=== PATIENT | female | born 1930 | race Caucasian/White ===

== ENCOUNTER 2019-12-14 15:51 | Inpatient (IN) | payer MEDICARE, OTHER ==
--- NOTE | 2019-12-14 15:56 | HP ---
SUPERVISING PHYSICIAN: Mainor Amin M.D. CHIEF COMPLAINT: Shortness of breath. HISTORY OF PRESENT ILLNESS: This is an 89 year-old female patient who has a history of congestive heart failure, chronic obstructive pulmonary disease and asthma that has been feeling poorly for the last 2 to 3 days. She progressively worsened to the point where she went to the Emergency Room in [place] due to her shortness of breath. She also had coughing and weakness. Initial oxygen saturations were in the low 70s. When they put oxygen on her it did come up to the mid 80s. She was given several breathing treatments and it then came up to the low 90s on 3 liters nasal cannula. Her other vital signs were basically within normal limits. BNP was only in the 50s and she does have a history of congestive heart failure, and then she tested positive for COVID-19. [facility] does not have the facilities for COVID patients so she was transferred here in stable condition. PAST MEDICAL HISTORY: 1. Congestive heart failure of unknown etiology. 2. Chronic obstructive pulmonary disease. 3. Asthma. 4. Essential tremors. PAST SURGICAL HISTORY: 1. section times 2. 2. Facial cancer removed. OUTPATIENT MEDICATIONS: 1. Pulmicort. 2. Omeprazole. 3. Amlodipine. 4. Aspirin. 5. Brinzolamide-Brimonidine ophthalmic drops. 6. Lisinopril. 7. Metoprolol. 8. Saline nasal spray. ALLERGIES: ACETAMINOPHEN. SOCIAL HISTORY: She previously lived in [place] and is a patient of Dr. Mohan, but recently moved in with her daughter in [place]. She smoked in the past but quit many years ago. There is no history of ETOH or illicit drug use. REVIEW OF SYSTEMS: GENERAL: Positive for fatigue and fever. Negative for weight changes. HEENT: Negative for sinus symptoms, ear pain, vision changes or sore throat. RESPIRATORY: Positive for wheezing, coughing or shortness of breath. CARDIAC: Negative for chest pain, palpitations or tachycardia. GASTROINTESTINAL: Negative for nausea, vomiting, diarrhea, constipation. GENITOURINARY: Negative for hematuria, dysuria or polyuria. SKIN: Negative for lesions or rashes. NEUROLOGIC: Positive for weakness. Negative for headache or seizures. PHYSICAL EXAMINATION: VITAL SIGNS: Temperature 98.7, heart rate 103, blood pressure 135/79, respiratory rate 23 to 26, O2 saturation 89% on 3 liters nasal cannula. GENERAL: This is an 89 year-old female patient who is sitting up in her hospital bed. She is in moderate respiratory distress. HEENT: Normocephalic, atraumatic. Pupils are equal and reactive. Oropharynx is clear. NECK: Supple without mass. RESPIRATORY: Expiratory wheezing throughout with some scattered rhonchi, diminished at the bases. She is visibly tachypneic. She can only speak in 1 to 2 words at a time without getting visibly short of breath. CHEST: There is equal rise and fall of the chest with inspiration and expiration. CARDIOVASCULAR: Regular rate and rhythm. GASTROINTESTINAL: Abdomen is soft, nondistended, nontender. Bowel sounds are positive. EXTREMITIES: No cyanosis, clubbing or edema. NEUROLOGIC: Awake, alert and oriented times three. Cranial nerves II-XII are grossly intact as tested. SKIN: [place], warm and dry. LABORATORY: WBCs are 7,500 with hemoglobin 11.4, hematocrit 34.1. PTT is 21.9 with fibrinogen of 491, D-dimer is 939. Electrolytes are basically within normal limits with the exception of her potassium is low at 3.5. AST is 52, LD is 234, C reactive protein 2.3, ferritin is pending. Troponin is pending. RADIOLOGY: Chest CT shows imaging features can be seen with COVID-19 pneumonia though are nonspecific and can occur with a variety of infectious or noninfectious processes. All other labs and films have been reviewed via the EMR and her chart from [facility]. ASSESSMENT: 1. COVID pneumonia. 2. Chronic obstructive pulmonary disease and asthma with exacerbation complicated by #1. 3. Congestive heart failure, unknown etiology. 4. Essential tremors. PLAN: The patient has been admitted to the hospital. We will initiate the pneumonia guidelines as well as the COVID guidelines. She will be on azithromycin and Rocephin as well as Lovenox for DVT prophylaxis, Decadron and Remdesivir. She will also have Protonix for ulcer prophylaxis. I will restart her home medications as soon as they are verified. Will also do the routine labs for tomorrow. She will also be on aggressive pulmonary hygiene. She is normally on Pulmicort but I have started Symbicort as she cannot have nebulizers in her room due to COVID. Will continue to monitor closely and follow as needed. [facility][id number] [facility]
[2019-12-14] MEDS ORDERED: SODIUM CHLORIDE 0.9% (FLUSH) 10 ML SYG IV PRN (16:01)
[2019-12-14] MEDS ORDERED: ACETAMINOPHEN 325 MG TAB PO PRN (16:01)
[2019-12-14] MEDS ORDERED: ONDANSETRON INJ 4 MG/2 ML VIAL IV PRN (16:01)
[2019-12-14] MEDS ORDERED: REMDESIVIR 200 MG in SODIUM CHLORIDE 0.9% 250ML 250 ML IVPB ONE (16:07)
[2019-12-14] MEDS ORDERED: DEXAMETHASONE INJ 10 MG/ML VIAL IV SCH (16:30)
[2019-12-14] MEDS ORDERED: KCL IVS ONE ×2 (17:03→19:30)
[2019-12-14] MEDS ORDERED: [UNRECOGNIZED DRUG - OTHER] IVS ONE ×2 (17:03→19:30)
[2019-12-14] MEDS ORDERED: cefTRIAXone SODIUM 1 GM in SODIUM CHL 0.9% 50ML MIN-BAG+ 50 ML IVPB SCH ×2 (17:30→21:00)
[2019-12-14] MEDS ORDERED: AZITHROMYCIN IV 500 MG in SODIUM CHLORIDE 0.9% 250ML 250 ML IVPB SCH (18:00)
[2019-12-14] MEDS ORDERED: SODIUM CHLORIDE 0.9% 250ML 250 ML ONE ×2 (18:13→20:16)
--- NOTE | 2019-12-14 18:14 | CT ---
CT CHEST WITHOUT IV CONTRAST HISTORY: Covid positive. COMPARISON: None. TECHNIQUE: CT scan of the chest was performed without IV contrast. This exam was performed according to our departmental dose-optimization program, which includes automated exposure control, adjustment of the mA and/or kV according to patient size and/or use of iterative reconstruction technique. FINDINGS: The thyroid gland is normal. No mediastinal or hilar adenopathy. The heart size is normal without pericardial effusion. The thoracic aorta is normal caliber. No consolidation, pleural effusion, or pneumothorax is identified. There are scattered groundglass opacities in the bilateral upper lobes. The aorta is normal in caliber. No acute bony findings are seen. No abnormal body wall hernia. IMPRESSION: Imaging features can be seen with COVID-19 pneumonia, though are nonspecific and can occur with a variety of infectious and noninfectious processes. [PneInd] Reference: https://pubs.rsna.org/doi/full/10.1148/ryct.[email or web address] Electronically signed by: Florian Delcid MD 12/14/2019 6:13 PM CDT
[2019-12-14] MEDS ORDERED: SODIUM CHLORIDE 0.65% NASAL SPRAY 45 ML BTTL BNAS PRN (18:21)
[2019-12-14] MEDS: IV SET AND CAP CHANGE INJ INJ SCH (18:33)
[2019-12-14] MEDS ORDERED: AZITHROMYCIN IV 500 MG VIAL IVPB ONE (20:15)
[2019-12-14] MEDS ORDERED: cefTRIAXone SODIUM 1 GM VIAL ONE (20:15)
[2019-12-14] MEDS ORDERED: SODIUM CHL 0.9% 50ML MIN-BAG+ 50 ML IVPB ONE (20:16)
[2019-12-14] MEDS: BIFIDOBACTERIUM INFANTIS 4 MG CAP PO SCH (20:30)
[2019-12-14] MEDS: AZITHROMYCIN IV 500 MG in SODIUM CHLORIDE 0.9% 250ML 250 ML IVPB SCH (20:30)
[2019-12-14] MEDS: DEXAMETHASONE INJ 10 MG/ML VIAL IV SCH (20:30)
[2019-12-14] MEDS: ENOXAPARIN SODIUM 40 MG/0.4 ML SYG SUBCU SCH (20:31)
[2019-12-14] MEDS: guaiFENesin ER TAB 600 MG TAB PO SCH (20:31)
[2019-12-14] MEDS: SODIUM CHLORIDE 0.9% (FLUSH) 10 ML SYG IV SCH (20:32)
[2019-12-14] MEDS: BRIMONIDINE OPHTH SCH (20:35)
[2019-12-14] MEDS: [UNRECOGNIZED DRUG - OTHER] OPHTH SCH (20:35)
[2019-12-14] MEDS: BRINZOLAMIDE OPHTH SCH (20:35)
[2019-12-14] MEDS: ALBUTEROL INHALER 64 PUFF/8GM INH SCH ×2 (20:45→21:53)
[2019-12-15] MEDS: BUDESONIDE/FORMOTEROL 160/4.5 60 PUFF/6 GM INH INH SCH ×3 (05:18→20:30)
[2019-12-15] MEDS: PANTOPRAZOLE SODIUM IV 40 MG VIAL IV SCH (05:35)
--- NOTE | 2019-12-15 07:29 | RAD ---
EXAM: XR Chest, 1 View CLINICAL HISTORY: covid TECHNIQUE: Frontal view of the chest. COMPARISON: Limited comparison to CT 12/14/2019 FINDINGS: Lungs: There is chronic appearing interstitial scarring with superimposed asymmetric multifocal right groundglass lung disease. Pleural space: No pneumothorax or pleural effusion. Heart: Normal cardiac size and configuration. Mediastinum: No abnormality noted. Bones/joints: No osseous destruction or sclerosis noted. IMPRESSION: There are abnormalities consistent with but not specific for covid pneumonia. Electronically signed by: Rajani Garsia MD 12/15/2019 7:27 AM CDT
[2019-12-15] MEDS: ALBUTEROL INHALER 64 PUFF/8GM INH SCH ×4 (08:50→20:30)
[2019-12-15] MEDS: guaiFENesin ER TAB 600 MG TAB PO SCH ×2 (09:07→20:51)
[2019-12-15] MEDS: REMDESIVIR 100 MG in SODIUM CHLORIDE 0.9% 250ML 250 ML IVPB SCH (09:07)
[2019-12-15] MEDS: BIFIDOBACTERIUM INFANTIS 4 MG CAP PO SCH ×2 (09:07→20:51)
[2019-12-15] MEDS: LISINOPRIL 5 MG TAB PO SCH (09:08)
[2019-12-15] MEDS: ASPIRIN (ENTERIC COATED) 81 MG TAB PO SCH (09:08)
[2019-12-15] MEDS: METOPROLOL SUCCINATE XL 25 MG TAB PO SCH (09:08)
[2019-12-15] MEDS: amLODIPine BESYLATE 5 MG TAB PO SCH (09:08)
[2019-12-15] MEDS: DEXAMETHASONE INJ 10 MG/ML VIAL IV SCH ×2 (09:08→09:35)
[2019-12-15] MEDS: BRINZOLAMIDE OPHTH SCH ×2 (09:09→21:35)
[2019-12-15] MEDS: SODIUM CHLORIDE 0.9% (FLUSH) 10 ML SYG IV SCH ×2 (09:09→20:52)
[2019-12-15] MEDS: BRIMONIDINE OPHTH SCH ×2 (09:09→21:35)
[2019-12-15] MEDS: [UNRECOGNIZED DRUG - OTHER] OPHTH SCH ×2 (09:09→21:35)
--- NOTE | 2019-12-15 16:00 | PN ---
SUPERVISING PHYSICIAN: Mainor Amin MD DATE: 12/15/19 SUBJECTIVE: The patient says she is doing okay, said she still had a little bit of shortness of breath but she is talking in full sentences. No nausea, vomiting, diarrhea. OBJECTIVE: VITAL SIGNS: Temperature 98, pulse 106, blood pressure 150/76, respirations 22, oxygen saturation 95% on 3.5 liter nasal cannula. GENERAL: Patient is resting comfortably, does not look to be in any distress. CHEST: Lung sounds, I do not notice any wheezing or rhonchi today. They are diminished toward the bases. HEART: Regular rate and rhythm. ABDOMEN: Soft, non-tender, positive bowel sound. EXTREMITIES: Without edema. NEUROLOGIC: She is alert and oriented x3. LABORATORY: White count 3,900, hemoglobin 10.8, hematocrit 32.7, platelet count 304,000, differential shows just a slight left shift. Today, chemistries show normal electrolytes with BUN of 14, creatinine 1.0. Liver functions all within normal limits including AST. C-reactive protein is down to 2.2. RADIOLOGY: Chest x-ray today shows abnormalities consistent with but nonspecific Covid pneumonia, multifocal. ASSESSMENT: 1. COVID pneumonia. 2. Chronic obstructive pulmonary disease and asthma with exacerbation complicated by #1. 3. Congestive heart failure, unknown etiology. 4. Essential tremors. PLAN: Will continue current plan at this point with azithromycin and Rocephin, Lovenox, Decadron and Remdesivir. She is on Protonix for ulcer protection. Will follow her labs closely and anticipate probably another 24 to 48 hours until we can discharge her home. Until then, we will continue to monitor and treat as needed. #[id number] MTDD
[2019-12-15] MEDS: cefTRIAXone SODIUM 1 GM in SODIUM CHL 0.9% 50ML MIN-BAG+ 50 ML IVPB SCH (18:59)
[2019-12-15] MEDS ORDERED: CARVEDILOL 3.125 MG TAB ONE (19:12)
[2019-12-15] MEDS ORDERED: busPIRone HCL 5 MG TAB ONE (19:12)
[2019-12-15] MEDS ORDERED: GABAPENTIN 300 MG CAP ONE (19:13)
[2019-12-15] MEDS ORDERED: SODIUM CHLORIDE 0.9% (FLUSH) 10 ML SYG ONE (19:15)
[2019-12-15] MEDS ORDERED: ENOXAPARIN SODIUM 40 MG/0.4 ML SYG SUBCU ONE (19:15)
[2019-12-15] MEDS ORDERED: guaiFENesin ER TAB 600 MG TAB ONE (19:15)
[2019-12-15] MEDS: AZITHROMYCIN IV 500 MG in SODIUM CHLORIDE 0.9% 250ML 250 ML IVPB SCH (19:30)
[2019-12-15] MEDS: ENOXAPARIN SODIUM 40 MG/0.4 ML SYG SUBCU SCH (20:51)
[2019-12-16] MEDS: PANTOPRAZOLE SODIUM IV 40 MG VIAL IV SCH (06:05)
[2019-12-16] MEDS: BUDESONIDE/FORMOTEROL 160/4.5 60 PUFF/6 GM INH INH SCH ×2 (08:30→21:08)
[2019-12-16] MEDS: ALBUTEROL INHALER 64 PUFF/8GM INH SCH ×4 (08:30→21:08)
[2019-12-16] MEDS: guaiFENesin ER TAB 600 MG TAB PO SCH ×2 (08:48→20:43)
[2019-12-16] MEDS: METOPROLOL SUCCINATE XL 25 MG TAB PO SCH (08:48)
[2019-12-16] MEDS: ASPIRIN (ENTERIC COATED) 81 MG TAB PO SCH (08:48)
[2019-12-16] MEDS: LISINOPRIL 5 MG TAB PO SCH (08:49)
[2019-12-16] MEDS: BIFIDOBACTERIUM INFANTIS 4 MG CAP PO SCH ×2 (08:49→20:43)
[2019-12-16] MEDS: amLODIPine BESYLATE 5 MG TAB PO SCH (08:49)
[2019-12-16] MEDS: DEXAMETHASONE INJ 10 MG/ML VIAL IV SCH (08:49)
[2019-12-16] MEDS: SODIUM CHLORIDE 0.9% (FLUSH) 10 ML SYG IV SCH ×2 (08:50→20:43)
[2019-12-16] MEDS: BRINZOLAMIDE OPHTH SCH ×2 (08:50→20:47)
[2019-12-16] MEDS: REMDESIVIR 100 MG in SODIUM CHLORIDE 0.9% 250ML 250 ML IVPB SCH (08:50)
[2019-12-16] MEDS: BRIMONIDINE OPHTH SCH ×2 (08:50→20:47)
[2019-12-16] MEDS: [UNRECOGNIZED DRUG - OTHER] OPHTH SCH ×2 (08:50→20:47)
[2019-12-16] MEDS: cefTRIAXone SODIUM 1 GM in SODIUM CHL 0.9% 50ML MIN-BAG+ 50 ML IVPB SCH (19:17)
[2019-12-16] MEDS: AZITHROMYCIN IV 500 MG in SODIUM CHLORIDE 0.9% 250ML 250 ML IVPB SCH (19:52)
[2019-12-16] MEDS: ENOXAPARIN SODIUM 40 MG/0.4 ML SYG SUBCU SCH (20:43)
--- NOTE | 2019-12-16 21:06 | PN ---
SUPERVISING PHYSICIAN: Mainor Amin M.D. DATE: 12/16/19 SUBJECTIVE: The patient still is short of breath. Seems to be a little bit more short today than yesterday. She is not in any distress. Able to talk in full sentences without any complications. She has not had any nausea or vomiting. No diarrhea. OBJECTIVE: VITAL SIGNS: Temperature 98.2, pulse 91, blood pressure 112/66, respirations 20 to 24, satting 94% on 2 liters nasal cannula. GENERAL: The patient is resting comfortably. Does not look to be in any distress. CHEST: Lung sounds are a little diminished today. I do note some upper airway wheezing, not any rhonchi are noted. HEART: Regular rate and rhythm. ABDOMEN: Soft, non-tender. Positive bowel sounds. EXTREMITIES: Without any edema. NEUROLOGIC: She is alert and oriented times three. LABORATORY: White count is up to 9,900 with a left shift noted. Hemoglobin 10.2, hematocrit 30.0. D-dimer is down to 655, fibrinogen is now normalized at 343. Troponin is less than 0.02. C reactive protein now has normalized. Electrolytes are within normal limits. Magnesium 2.1. Liver functions are all within normal limits. MICROBIOLOGY: Sputum culture is pending. Urine culture is showing no growth. RADIOLOGY: No additional radiographic studies today. ASSESSMENT: 1. COVID pneumonia. 2. Chronic obstructive pulmonary disease and asthma with exacerbation complicated by #1. 3. Congestive heart failure, unknown etiology. 4. Essential tremors. PLAN: Will continue current plan at this point again with Rocephin, azithromycin, Lovenox, Decadron and Remdesivir. She remains on Protonix. Will follow her labs. Hope to be able to discharge within the next 24 to 48 hours. Until then continue to monitor and treat as needed. #[id number] MTDD
[2019-12-17] MEDS ORDERED: PANTOPRAZOLE SODIUM TAB 40 MG PO ONE (04:22)
[2019-12-17] MEDS: PANTOPRAZOLE SODIUM TAB 40 MG PO SCH (06:11)
--- NOTE | 2019-12-17 06:15 | RAD ---
EXAM: XR Chest, 1 View CLINICAL HISTORY: covid infection TECHNIQUE: Frontal view of the chest. COMPARISON: 12/15/2019 FINDINGS: Lungs: Stable diffuse interstitial thickening and superimposed mild patchy airspace disease in the perihilar regions and bases. Pleural space: No pneumothorax or pleural effusion. Heart: Stable cardiac enlargement. Mediastinum: No abnormality noted. Bones/joints: No osseous destruction or sclerosis noted. IMPRESSION: Stable abnormalities as above. Electronically signed by: Rajani Garsia MD 12/17/2019 6:14 AM CDT
[2019-12-17] MEDS ORDERED: SODIUM CHLORIDE 0.9% 250ML 250 ML ONE (07:11)
[2019-12-17] MEDS: DEXAMETHASONE INJ 10 MG/ML VIAL IV SCH (08:58)
[2019-12-17] MEDS: LISINOPRIL 5 MG TAB PO SCH (08:59)
[2019-12-17] MEDS: amLODIPine BESYLATE 5 MG TAB PO SCH (08:59)
[2019-12-17] MEDS: BIFIDOBACTERIUM INFANTIS 4 MG CAP PO SCH ×2 (08:59→20:30)
[2019-12-17] MEDS: ASPIRIN (ENTERIC COATED) 81 MG TAB PO SCH (08:59)
[2019-12-17] MEDS: SODIUM CHLORIDE 0.9% (FLUSH) 10 ML SYG IV SCH ×2 (08:59→20:31)
[2019-12-17] MEDS: guaiFENesin ER TAB 600 MG TAB PO SCH ×2 (08:59→20:30)
[2019-12-17] MEDS: METOPROLOL SUCCINATE XL 25 MG TAB PO SCH (08:59)
[2019-12-17] MEDS: REMDESIVIR 100 MG in SODIUM CHLORIDE 0.9% 250ML 250 ML IVPB SCH (09:00)
[2019-12-17] MEDS: [UNRECOGNIZED DRUG - OTHER] OPHTH SCH ×2 (09:01→20:31)
[2019-12-17] MEDS: BRINZOLAMIDE OPHTH SCH ×2 (09:01→20:31)
[2019-12-17] MEDS: BRIMONIDINE OPHTH SCH ×2 (09:01→20:31)
[2019-12-17] MEDS: ALBUTEROL INHALER 64 PUFF/8GM INH SCH ×5 (09:20→20:38)
[2019-12-17] MEDS: BUDESONIDE/FORMOTEROL 160/4.5 60 PUFF/6 GM INH INH SCH ×2 (11:00→20:37)
--- NOTE | 2019-12-17 16:29 | PN ---
SUPERVISING PHYSICIAN: Mainor Amin M.D. DATE: 12/17/19 SUBJECTIVE: The patient is lying in bed. She still complains of shortness of breath. She denies chest pain or nausea or vomiting. Discussed her plan of care and discharge. OBJECTIVE: VITAL SIGNS: Temperature 98, heart rate 88, blood pressure 150/75, respiratory rate 20. Oxygen saturation 95% on 2 liters nasal cannula. CHEST: Lung sounds somewhat diminished at the bases. Otherwise, clear to auscultation. HEART: Regular rate and rhythm. ABDOMEN: Soft, non-tender, nondistended. Bowel sounds are positive. NEUROLOGIC: She is awake, alert and oriented times three. LABORATORY: WBC 9.0. Hemoglobin 10.9, hematocrit 31.9. Fibrinogen is 373. D- dimer has gone up to 875. Electrolytes are basically within normal limits. BUN 23, creatinine 1.08. Calcium 8.1, LD 186, creatinine kinase 156, C-reactive protein is less than 0.8. Preliminary urine culture shows no growth after 48 hours. Sputum culture with gram stain pending. RADIOLOGY: Chest x-ray stable. Abdomen shows stable abnormalities as per the report. All other labs and films have been reviewed via the EMR. ASSESSMENT: 1. COVID pneumonia. 2. Chronic obstructive pulmonary disease and asthma with exacerbation complicated by #1. 3. Congestive heart failure, unknown etiology. 4. Essential tremors. PLAN: Will continue present supportive care and continue with her present medications. I have increased her Lovenox to 70 mg at h.s. At this point, we will continue with her Bay catheter. She gets extremely short of breath and has a difficult time getting up to the bedside commode. In the next day or so we will do bladder training so we can discontinue that prior to discharge. I have ordered Covid lab for in the morning. She does her home 02, although she can be discharged in the next 48 hours or so. #[id number] MTDD
[2019-12-17] MEDS ORDERED: ENOXAPARIN SODIUM 80 MG/0.8 ML SYG SUBCU ONE (19:21)
[2019-12-17] MEDS: cefTRIAXone SODIUM 1 GM in SODIUM CHL 0.9% 50ML MIN-BAG+ 50 ML IVPB SCH (19:28)
[2019-12-17] MEDS: AZITHROMYCIN IV 500 MG in SODIUM CHLORIDE 0.9% 250ML 250 ML IVPB SCH (19:51)
[2019-12-17] MEDS: IV SET AND CAP CHANGE INJ INJ SCH (19:55)
[2019-12-17] MEDS: ENOXAPARIN SODIUM 80 MG/0.8 ML SYG SUBCU SCH (20:30)
[2019-12-18] MEDS: ALBUTEROL INHALER 64 PUFF/8GM INH PRN (01:07)
[2019-12-18] MEDS: PANTOPRAZOLE SODIUM TAB 40 MG PO SCH (05:51)
--- NOTE | 2019-12-18 07:30 | RAD ---
: 1930. Technique: Portable AP upright chest x-ray. Comparison: December 17, 2019 chest x-ray and December 14, [address] Clinical history: follow up COVID +. Heart size: Heart size is borderline enlarged unchanged. Calcified aorta. Lungs: Air-trapping and flattened diaphragms. COPD. Focal mixed, mainly interstitial infiltrate mainly on the left. There is improvement at the right base. Pleura: No pleural effusion. No pneumothorax. Mediastinum and ladonna: Unremarkable. Skeletal: Unremarkable. Support tubings: None. Impression: 1. COPD and superimposed interstitial pneumonitis improved on the right. Electronically signed by: Ted Richey MD 12/18/2019 7:28 AM CDT
[2019-12-18] MEDS: ALBUTEROL INHALER 64 PUFF/8GM INH SCH ×4 (09:20→20:50)
[2019-12-18] MEDS: BUDESONIDE/FORMOTEROL 160/4.5 60 PUFF/6 GM INH INH SCH ×2 (09:20→20:50)
[2019-12-18] MEDS: REMDESIVIR 100 MG in SODIUM CHLORIDE 0.9% 250ML 250 ML IVPB SCH (09:36)
[2019-12-18] MEDS: SODIUM CHLORIDE 0.9% (FLUSH) 10 ML SYG IV SCH ×2 (09:36→20:21)
[2019-12-18] MEDS: BRIMONIDINE OPHTH SCH ×2 (09:36→20:22)
[2019-12-18] MEDS: BRINZOLAMIDE OPHTH SCH ×2 (09:36→20:22)
[2019-12-18] MEDS: [UNRECOGNIZED DRUG - OTHER] OPHTH SCH ×2 (09:36→20:22)
[2019-12-18] MEDS: DEXAMETHASONE INJ 10 MG/ML VIAL IV SCH (09:37)
[2019-12-18] MEDS: ASPIRIN (ENTERIC COATED) 81 MG TAB PO SCH (09:37)
[2019-12-18] MEDS: LISINOPRIL 5 MG TAB PO SCH (09:37)
[2019-12-18] MEDS: BIFIDOBACTERIUM INFANTIS 4 MG CAP PO SCH ×2 (09:37→20:20)
[2019-12-18] MEDS: guaiFENesin ER TAB 600 MG TAB PO SCH ×2 (09:37→20:20)
[2019-12-18] MEDS: METOPROLOL SUCCINATE XL 25 MG TAB PO SCH (09:38)
[2019-12-18] MEDS: amLODIPine BESYLATE 5 MG TAB PO SCH (09:38)
[2019-12-18] MEDS: CITALOPRAM HBR 20 MG TAB PO SCH (15:47)
--- NOTE | 2019-12-18 17:21 | PN ---
SUPERVISING PHYSICIAN: Mainor Amin M.D. DATE: 12/18/19 SUBJECTIVE: The patient is sitting up in bed. She is still quite tachypneic and short of breath. Reported by nursing that she is anxious and lonely. There has been an initial workup for her discharge to a detention. She denies chest pain or nausea or vomiting. OBJECTIVE: VITAL SIGNS: Temperature 98.1, heart rate 81, blood pressure 138/74, respiratory rate 24. Oxygen saturation 95% on 3 liters nasal cannula. CHEST: Diminished breath sounds throughout. She is tachypneic. Can only speak in 2 to 3-word phrases. HEART: Regular rate and rhythm. ABDOMEN: Soft, non-tender, nondistended. Bowel sounds are positive. NEUROLOGIC: She is awake, alert but very anxious. . LABORATORY: WBC 7.9. Hemoglobin 10.8, hematocrit 32.5. D-dimer is 822. Electrolytes are basically within normal limits. BUN 25, creatinine 1.06. Sputum culture is pending. Urine cultures shows no growth after 48 hours. RADIOLOGY: Chest x-ray shows: 1. Chronic obstructive pulmonary disease and superimposed interstitial pneumonitis, improved on the right. All other labs and films have been reviewed via the EMR. ASSESSMENT: 1. COVID pneumonitis. . 2. Chronic obstructive pulmonary disease and asthma with exacerbation complicated by #1. 3. Congestive heart failure, unknown etiology. 4. Essential tremors. PLAN: Will continue present supportive care. I am continuing to keep her awake her Bay for now as she gets too short of breath with trying to get up to bedside commode. I have ordered a CRP, D-dimer and BNP tomorrow. Hold on chest x-ray for now. I will also followup on Friday about her discharge to a detention. We will continue to monitor him closely and follow as needed. #[id number] [facility]
[2019-12-18] MEDS: cefTRIAXone SODIUM 1 GM in SODIUM CHL 0.9% 50ML MIN-BAG+ 50 ML IVPB SCH (19:22)
[2019-12-18] MEDS: AZITHROMYCIN IV 500 MG in SODIUM CHLORIDE 0.9% 250ML 250 ML IVPB SCH (20:02)
[2019-12-18] MEDS: ENOXAPARIN SODIUM 80 MG/0.8 ML SYG SUBCU SCH (20:20)
[2019-12-19] MEDS: PANTOPRAZOLE SODIUM TAB 40 MG PO SCH (06:05)
[2019-12-19] MEDS ORDERED: CITALOPRAM HBR 20 MG TAB ONE (09:23)
[2019-12-19] MEDS: BUDESONIDE/FORMOTEROL 160/4.5 60 PUFF/6 GM INH INH SCH ×2 (09:30→20:30)
[2019-12-19] MEDS: ALBUTEROL INHALER 64 PUFF/8GM INH SCH ×4 (09:30→20:30)
[2019-12-19] MEDS: ASPIRIN (ENTERIC COATED) 81 MG TAB PO SCH (09:33)
[2019-12-19] MEDS: BIFIDOBACTERIUM INFANTIS 4 MG CAP PO SCH ×2 (09:33→21:34)
[2019-12-19] MEDS: SODIUM CHLORIDE 0.9% (FLUSH) 10 ML SYG IV SCH ×2 (09:33→21:34)
[2019-12-19] MEDS: CITALOPRAM HBR 20 MG TAB PO SCH (09:34)
[2019-12-19] MEDS: LISINOPRIL 5 MG TAB PO SCH (09:34)
[2019-12-19] MEDS: amLODIPine BESYLATE 5 MG TAB PO SCH (09:34)
[2019-12-19] MEDS: METOPROLOL SUCCINATE XL 25 MG TAB PO SCH (09:34)
[2019-12-19] MEDS: guaiFENesin ER TAB 600 MG TAB PO SCH ×2 (09:34→21:34)
[2019-12-19] MEDS: BRINZOLAMIDE OPHTH SCH ×2 (09:35→21:34)
[2019-12-19] MEDS: BRIMONIDINE OPHTH SCH ×2 (09:35→21:34)
[2019-12-19] MEDS: [UNRECOGNIZED DRUG - OTHER] OPHTH SCH ×2 (09:35→21:34)
[2019-12-19] MEDS: DEXAMETHASONE INJ 10 MG/ML VIAL IV SCH (09:35)
[2019-12-19] MEDS: cefTRIAXone SODIUM 1 GM in SODIUM CHL 0.9% 50ML MIN-BAG+ 50 ML IVPB SCH (19:34)
--- NOTE | 2019-12-19 20:01 | PN ---
SUPERVISING PHYSICIAN: Mainor Amin MD DATE: 12/19/19 SUBJECTIVE: The patient is sitting up in bed. She is slightly confused today. She is still having obvious shortness of breath with abdominal muscle usage and she denies chest pain or nausea or vomiting. OBJECTIVE: VITAL SIGNS: Temperature 98, heart rate 71, blood pressure 133/78, respiratory rate 18 to 23. Oxygen saturation 94% on 3 liters nasal cannula. CHEST: Diminished breath sounds throughout with a few scattered coarse rhonchi. She is tachypneic. HEART: Regular rate and rhythm. NEUROLOGIC: She is awake, alert but somewhat confused. She is oriented to person. LABORATORY: D-dimer is down to 367. Electrolytes are basically within normal limits with the exception of her calcium slightly low at 8.3. BUN 24, creatinine 0.93. C-reactive protein less than 0.8. Sputum culture is pending. All other labs and films have been reviewed via the EMR. ASSESSMENT: 1. COVID pneumonitis. 2. Chronic obstructive pulmonary disease and asthma with exacerbation, complicated by #1. 3. Congestive heart failure, unknown etiology. 4. Essential tremors. PLAN: Will continue present supportive care. We will continue to keep her Bay catheter. At this time, she is very confused, but we will attempt to take it out prior to discharge. She is still having quite a bit of shortness of breath and difficulty getting up to the bedside commode. I will do routine lab and chest x-ray tomorrow. We will need to followup with Social Service about her discharge plan as most likely she will need intermediate placement. We will get KARINA Galvan, to followup on that. [facility][id number] [facility]
[2019-12-19] MEDS: AZITHROMYCIN IV 500 MG in SODIUM CHLORIDE 0.9% 250ML 250 ML IVPB SCH (21:32)
[2019-12-19] MEDS: ENOXAPARIN SODIUM 80 MG/0.8 ML SYG SUBCU SCH (21:34)
[2019-12-20] MEDS: PANTOPRAZOLE SODIUM TAB 40 MG PO SCH (06:04)
[2019-12-20] MEDS: BUDESONIDE/FORMOTEROL 160/4.5 60 PUFF/6 GM INH INH SCH ×2 (09:15→21:10)
[2019-12-20] MEDS: ALBUTEROL INHALER 64 PUFF/8GM INH SCH ×4 (09:15→21:10)
[2019-12-20] MEDS: LISINOPRIL 5 MG TAB PO SCH (10:03)
[2019-12-20] MEDS: CITALOPRAM HBR 20 MG TAB PO SCH (10:03)
[2019-12-20] MEDS: FUROSEMIDE INJ 40 MG/4 ML VIAL IV SCH ×2 (10:03→17:49)
[2019-12-20] MEDS: DEXAMETHASONE INJ 10 MG/ML VIAL IV SCH (10:03)
[2019-12-20] MEDS: ASPIRIN (ENTERIC COATED) 81 MG TAB PO SCH (10:04)
[2019-12-20] MEDS: BRIMONIDINE OPHTH SCH ×2 (10:04→21:44)
[2019-12-20] MEDS: METOPROLOL SUCCINATE XL 25 MG TAB PO SCH (10:04)
[2019-12-20] MEDS: amLODIPine BESYLATE 5 MG TAB PO SCH (10:04)
[2019-12-20] MEDS: SODIUM CHLORIDE 0.9% (FLUSH) 10 ML SYG IV SCH ×2 (10:04→21:45)
[2019-12-20] MEDS: BRINZOLAMIDE OPHTH SCH ×2 (10:04→21:44)
[2019-12-20] MEDS: [UNRECOGNIZED DRUG - OTHER] OPHTH SCH ×2 (10:04→21:44)
[2019-12-20] MEDS: guaiFENesin ER TAB 600 MG TAB PO SCH ×2 (10:04→21:45)
[2019-12-20] MEDS: BIFIDOBACTERIUM INFANTIS 4 MG CAP PO SCH ×2 (11:23→21:44)
--- NOTE | 2019-12-20 15:52 | PN ---
SUPERVISING PHYSICIAN: Irving Laws MD DATE: 12/20/19 SUBJECTIVE: The patient states she is quite a bit short of breath and struggling to breathe. Her current code status is DNR. She is actually oxygenating fairly well, however, she is using accessory muscles to breathe. OBJECTIVE: VITAL SIGNS: Blood pressure 132/77, heart rate 85, respiratory rate 26, temperature 97.9, oxygen saturation 97% on 3 liters. GENERAL: Ms. Pacheco is an 89-year-old female who is in acute respiratory distress. NEUROLOGIC: The patient is alert, though hard of hearing. LUNGS: Diminished with active wheezing. CARDIOVASCULAR: Regular rate and rhythm. Normal S1, S2. ABDOMEN: Soft. Positive bowel sounds. EXTREMITIES: Lower extremities with no significant edema. LABORATORY: No labs were done today. She did have a decreasing trend in her D- dimer. I did get an arterial blood gases today which showed pH 7.39, pCO2 43, pO2 73, bicarb 26, base excess 1.2. ASSESSMENT: 1. COVID pneumonitis. 2. Chronic obstructive pulmonary disease and asthma with exacerbation. 3. Congestive heart failure with possible exacerbation 4. Essential tremors. PLAN: Given her continuous dyspnea, I did discuss with her granddaughter, who is a nurse, via telephone regarding the patient's condition and plan of care. She requested the patient be placed on BiPAP. I did instruct that potentially the patient would not want that. However, we will try it and see what happens. ABGs are actually not that bad on 3 liters, but this would be treating the work of breathing. She will have move rooms to a negative pressure room given the COVID diagnosis. I did give her some Lasix. Her granddaughter indicated that potentially she would not mind being placed on the ventilator if it was temporary, however, at her age and current condition, I do not think she would get back off the ventilator. We will reevaluate after utilizing the BiPAP and see how she does. #[id number] [facility]
[2019-12-20] MEDS: IV SET AND CAP CHANGE INJ INJ SCH (17:49)
[2019-12-20] MEDS ORDERED: MORPHINE SULFATE INJ 10 MG/ML VIAL IV ONE (17:53)
[2019-12-20] MEDS: cefTRIAXone SODIUM 1 GM in SODIUM CHL 0.9% 50ML MIN-BAG+ 50 ML IVPB SCH (19:56)
[2019-12-20] MEDS: ENOXAPARIN SODIUM 80 MG/0.8 ML SYG SUBCU SCH (21:44)
[2019-12-21] MEDS: PANTOPRAZOLE SODIUM TAB 40 MG PO SCH (05:31)
--- NOTE | 2019-12-21 07:33 | RAD ---
EXAM: XR Chest, 1 View CLINICAL HISTORY: The patient is 89 years old and is Female; follow up pneumonitis TECHNIQUE: Single upright portable view of the chest. COMPARISON: December 18, 2019 7:05 AM. FINDINGS: Lungs: Hazy bibasilar subsegmental atelectasis or infiltrate again noted. Pleural space: No definite pneumothorax. Patient's head position partially obscures the left lung apex. Heart: Unremarkable. No cardiomegaly. Mediastinum: Mediastinal contours are altered due to leftward patient rotation. Bones/joints: The bones and joints are unchanged as visualized. Upper abdomen: No free air in the visualized upper abdomen. IMPRESSION: Hazy bibasilar subsegmental atelectasis or infiltrate again noted. Electronically signed by: Ilana Eaton MD 12/21/2019 7:32 AM CDT
[2019-12-21] MEDS: ALBUTEROL INHALER 64 PUFF/8GM INH SCH ×4 (08:45→20:50)
[2019-12-21] MEDS: BUDESONIDE/FORMOTEROL 160/4.5 60 PUFF/6 GM INH INH SCH ×2 (08:45→20:50)
[2019-12-21] MEDS: BIFIDOBACTERIUM INFANTIS 4 MG CAP PO SCH ×2 (11:17→20:03)
[2019-12-21] MEDS: CITALOPRAM HBR 20 MG TAB PO SCH (11:17)
[2019-12-21] MEDS: ASPIRIN (ENTERIC COATED) 81 MG TAB PO SCH (11:18)
[2019-12-21] MEDS: BRIMONIDINE OPHTH SCH ×2 (11:18→20:03)
[2019-12-21] MEDS: LISINOPRIL 5 MG TAB PO SCH (11:18)
[2019-12-21] MEDS: amLODIPine BESYLATE 5 MG TAB PO SCH (11:18)
[2019-12-21] MEDS: BRINZOLAMIDE OPHTH SCH ×2 (11:18→20:03)
[2019-12-21] MEDS: [UNRECOGNIZED DRUG - OTHER] OPHTH SCH ×2 (11:18→20:03)
[2019-12-21] MEDS: guaiFENesin ER TAB 600 MG TAB PO SCH ×2 (11:18→20:03)
[2019-12-21] MEDS: FUROSEMIDE INJ 40 MG/4 ML VIAL IV SCH (11:18)
[2019-12-21] MEDS: METOPROLOL SUCCINATE XL 25 MG TAB PO SCH (11:18)
[2019-12-21] MEDS: DEXAMETHASONE INJ 10 MG/ML VIAL IV SCH (11:19)
[2019-12-21] MEDS: SODIUM CHLORIDE 0.9% (FLUSH) 10 ML SYG IV SCH ×2 (11:19→20:15)
--- NOTE | 2019-12-21 13:07 | PN ---
SUPERVISING PHYSICIAN: Irving Laws MD DATE: 12/21/19 SUBJECTIVE: The patient is sleeping at the moment, but arouses to voice. Breathing seems to be better than it was yesterday. She is not breathing as hard. We tried to start her on some BiPAP for work of breathing, but she did not tolerate that. However, her oxygen demand is going down. She seems to be breathing a little better than she was. She was given some Lasix yesterday and that may have helped as well. OBJECTIVE: VITAL SIGNS: Blood pressure 138/82, heart rate 71, respiratory rate 20, temperature 97.6, oxygen saturation 97% on 2 liters via nasal cannula. GENERAL: Ms. Pacheco is an 89-year-old female who is in active respiratory distress currently. NEUROLOGIC: The patient is a little bit confused, but awakens and focal simple commands with no focal deficits. LUNGS: Bibasilar rales. CARDIOVASCULAR: Regular rate and rhythm. Normal S1, S2. ABDOMEN: Soft. Positive bowel sounds. EXTREMITIES: Lower extremities a little bit of edema. LABORATORY: White count 9.5, hemoglobin 12.4, hematocrit 37.5, platelet count 302. Chemistry with elevated BUN 35, creatinine 1.09, glucose 111. CRP is still less than 0.8. RADIOLOGY: Chest x-ray done today shows still hazy bibasilar subsegmental atelectasis or infiltrate, but otherwise no significant changes. ASSESSMENT: 1. COVID pneumonitis. 2. Chronic obstructive pulmonary disease and asthma with exacerbation. 3. Congestive heart failure with exacerbation 4. Essential tremors. PLAN: I will reduce the Lasix to 20 mg b.i.d. Given that she diuresed really well yesterday, I do not want to dry out too fast. Oxygen demand is down and she seems to be breathing a little bit easier. She does get quite anxious and I am going to start on clonazepam so we do not have utilize IV Ativan as often. Otherwise, we will continue the ceftriaxone and dexamethasone. #[id number] [facility]TDD
[2019-12-21] MEDS ORDERED: FUROSEMIDE INJ 20 MG/2 ML VIAL IV SCH (17:00)
[2019-12-21] MEDS: cefTRIAXone SODIUM 1 GM in SODIUM CHL 0.9% 50ML MIN-BAG+ 50 ML IVPB SCH (19:42)
[2019-12-21] MEDS: ENOXAPARIN SODIUM 80 MG/0.8 ML SYG SUBCU SCH (20:03)
[2019-12-22] MEDS: PANTOPRAZOLE SODIUM TAB 40 MG PO SCH (05:46)
[2019-12-22] MEDS ORDERED: MORPHINE SULFATE INJ 10 MG/ML VIAL IV ONE (06:29)
[2019-12-22] MEDS: ALBUTEROL INHALER 64 PUFF/8GM INH SCH ×4 (09:38→20:40)
[2019-12-22] MEDS: BUDESONIDE/FORMOTEROL 160/4.5 60 PUFF/6 GM INH INH SCH ×2 (09:38→20:40)
[2019-12-22] MEDS: CITALOPRAM HBR 20 MG TAB PO SCH (09:55)
[2019-12-22] MEDS: BIFIDOBACTERIUM INFANTIS 4 MG CAP PO SCH ×2 (09:55→20:43)
[2019-12-22] MEDS: DEXAMETHASONE INJ 10 MG/ML VIAL IV SCH (09:55)
[2019-12-22] MEDS: LISINOPRIL 5 MG TAB PO SCH (09:55)
[2019-12-22] MEDS: ASPIRIN (ENTERIC COATED) 81 MG TAB PO SCH (09:56)
[2019-12-22] MEDS: METOPROLOL SUCCINATE XL 25 MG TAB PO SCH (09:56)
[2019-12-22] MEDS: BRIMONIDINE OPHTH SCH ×2 (09:56→20:43)
[2019-12-22] MEDS: guaiFENesin ER TAB 600 MG TAB PO SCH ×3 (09:56→21:00)
[2019-12-22] MEDS: [UNRECOGNIZED DRUG - OTHER] OPHTH SCH ×2 (09:56→20:43)
[2019-12-22] MEDS: BRINZOLAMIDE OPHTH SCH ×2 (09:56→20:43)
[2019-12-22] MEDS: amLODIPine BESYLATE 5 MG TAB PO SCH (09:56)
[2019-12-22] MEDS: SODIUM CHLORIDE 0.9% (FLUSH) 10 ML SYG IV SCH ×2 (09:56→20:43)
--- NOTE | 2019-12-22 12:03 | PN ---
SUPERVISING PHYSICIAN: Irving Laws MD DATE: 12/22/19 SUBJECTIVE: The patient is pretty drowsy at this time. She is still using accessory muscles, but not to the degree she was Friday. Yesterday, she seemed more comfortable. It seems like she is a little sedate at this time. She did get some morphine not too long before my assessment. She does not have as many rales as she did. She does sound like she needs to cough something up, but cannot quite get it up. OBJECTIVE: VITAL SIGNS: Blood pressure 130/65, heart rate 97, respiratory rate 21, temperature 97.5, oxygen saturation 96% on 2 liters via nasal cannula. GENERAL: Ms. Pacheco is an 89-year-old female who is ill in appearance with some mild respiratory distress. NEUROLOGIC: The patient is drowsy. She follows simple commands. LUNGS: Diminished bases with bibasilar rales. No active wheezing. CARDIOVASCULAR: Regular rate and rhythm. Normal S1, S2. ABDOMEN: Soft. Positive bowel sounds. EXTREMITIES: Lower extremities with some ankle edema, 2+ pulses. Capillary refill less than 2 second. LABORATORY: Normal white count at 8.3, mild shift at 78.4 neutrophils. Coagulation studies show D-dimer 399. Chemistry with mild elevation of BUN and creatinine at 51 and 1.32 respectively. C-reactive protein less than 0.8. ASSESSMENT: 1. COVID pneumonitis. 2. Chronic obstructive pulmonary disease and asthma exacerbation. 3. Congestive heart failure with exacerbation 4. Essential tremors. 5. Disuse myopathy. PLAN: I am going to discontinue the Lasix as it has affected her BUN and creatinine and really, she is not as overloaded as she was. She is still requiring only 2 liters of oxygen and saturating fairly well. Her tachypnea and work of breathing is better than it was Friday, but a little bit worse than it was yesterday. I think she has a degree of anxiety, however, the anxiety medication kind of knock her out too much. I am going to discontinue the IV Ativan and just go with clonazepam. My concern is her weakness. She really cannot cough up what sounds like something in the back of her throat. She is obviously weakened from this acute illness. Physical therapy has been consulted and will work with her this afternoon. Due to the fact that her O2 requirements are not going up, I am not convinced that the COVID pneumonitis is the reason for the lack of improvement. I think her age and generalized weakness due to the acute illness are having quite an affect on her. We will need to discuss with the family again regarding her status. #[id number] [facility]
[2019-12-22] MEDS ORDERED: METOPROLOL TARTRATE INJ 5 MG/5 ML VIAL IV ONE (18:19)
[2019-12-22] MEDS: cefTRIAXone SODIUM 1 GM in SODIUM CHL 0.9% 50ML MIN-BAG+ 50 ML IVPB SCH (19:25)
[2019-12-22] MEDS: ENOXAPARIN SODIUM 80 MG/0.8 ML SYG SUBCU SCH (20:43)
[2019-12-23] MEDS: PANTOPRAZOLE SODIUM TAB 40 MG PO SCH (06:11)
--- NOTE | 2019-12-23 07:18 | RAD ---
EXAM DESCRIPTION: Chest,1 View CLINICAL HISTORY: 89 years Female, pneumonia COMPARISON: 12/21/2019. Chest CT 12/13/2014 TECHNIQUE: AP portable chest. FINDINGS/IMPRESSION: Background pulmonary emphysematous changes with scattered peripheral reticular scarring/fibrosis. Interval improved aeration of the lungs with near complete resolution of previously noted left basilar density/infiltrate. No focal consolidation, pneumothorax or pleural effusion seen. The heart is normal in size. Diffuse osteopenia. No acute osseous abnormality. Electronically signed by: Carlton Maya DO 12/23/2019 7:17 AM CDT
[2019-12-23] MEDS: ALBUTEROL INHALER 64 PUFF/8GM INH SCH ×4 (08:40→21:00)
[2019-12-23] MEDS: BUDESONIDE/FORMOTEROL 160/4.5 60 PUFF/6 GM INH INH SCH ×2 (08:40→21:00)
[2019-12-23] MEDS: guaiFENesin ER TAB 600 MG TAB PO SCH ×2 (09:11→20:33)
[2019-12-23] MEDS: BIFIDOBACTERIUM INFANTIS 4 MG CAP PO SCH ×2 (09:11→20:33)
[2019-12-23] MEDS: CITALOPRAM HBR 20 MG TAB PO SCH (09:11)
[2019-12-23] MEDS: amLODIPine BESYLATE 5 MG TAB PO SCH (09:12)
[2019-12-23] MEDS: LISINOPRIL 5 MG TAB PO SCH (09:12)
[2019-12-23] MEDS: ASPIRIN (ENTERIC COATED) 81 MG TAB PO SCH (09:12)
[2019-12-23] MEDS: DEXAMETHASONE INJ 10 MG/ML VIAL IV SCH (09:30)
[2019-12-23] MEDS: SODIUM CHLORIDE 0.9% (FLUSH) 10 ML SYG IV SCH ×2 (09:55→20:35)
[2019-12-23] MEDS: METOPROLOL SUCCINATE XL 25 MG TAB PO SCH (11:21)
[2019-12-23] MEDS: IV SET AND CAP CHANGE INJ INJ SCH (17:08)
[2019-12-23] MEDS: [UNRECOGNIZED DRUG - OTHER] OPHTH SCH ×2 (17:08→20:34)
[2019-12-23] MEDS: BRIMONIDINE OPHTH SCH ×2 (17:08→20:34)
[2019-12-23] MEDS: BRINZOLAMIDE OPHTH SCH ×2 (17:08→20:34)
[2019-12-23] MEDS: cefTRIAXone SODIUM 1 GM in SODIUM CHL 0.9% 50ML MIN-BAG+ 50 ML IVPB SCH (19:16)
[2019-12-23] MEDS: ENOXAPARIN SODIUM 80 MG/0.8 ML SYG SUBCU SCH (20:34)
--- NOTE | 2019-12-23 20:39 | PN ---
SUPERVISING PHYSICIAN: Irving Laws MD DATE: 12/23/19 SUBJECTIVE: The patient is resting comfortably. All she does is moan, she does not really follow commands very well. She has a wet sounding cough, but does really try to work to clear that up. She does not have any shortness of breath. She seems to be resting comfortably. OBJECTIVE: VITAL SIGNS: Temperature 97.4, pulse 89, blood pressure 116/66, respirations 18, saturation 96% on 6 liters nasal cannula. GENERAL: The patient is comfortable without any obvious distress. CHEST: Lung sound are diminished with some coarse sounds in the upper airways which sound more prominent in the larger airways and clears up somewhat when she clears her throat. I do not hear any wheezing or obvious rhonchi. HEART: Regular rate and rhythm. ABDOMEN: Soft. Positive bowel sounds. EXTREMITIES: Trace edema bilaterally. Capillary refill brisk. NEUROLOGIC: She is able to follow some simple commands, but does not really converse. She is a little drowsy. LABORATORY: White count stable at 8,300, hemoglobin 12.1, hematocrit 36.3, purulent 264,000. Differential does show a left shift. Coagulation studies show a now normalized D-dimer which has been stable for 2 days. Chemistries show potassium 3.8, sodium normal at 138, BUN 59, creatinine 1.32, osmolality on the higher end of normal at 293. MICROBIOLOGY: Urine culture shows no growth. Final sputum culture shows moderate yeast, otherwise normal guille. RADIOLOGY: Chest x-ray this morning, single-view, per radiologic interpretation showed no focal consolidation, pneumothorax or pleural effusions. Background pulmonary emphysema changes with scattered peripheral reticular scarring or fibrosis with interval improved aeration in the lungs with near complete resolution of previously noted left basilar density/infiltrate. Please see that report for details. ASSESSMENT: 1. COVID pneumonitis. 2. Chronic obstructive pulmonary disease and asthma with exacerbation. 3. Congestive heart failure with exacerbation 4. Essential tremors. 5. Disuse myopathy. PLAN: The patient has been accept to [facility]. She will continue to be on Lasix. We will titrate her oxygen as we can get her down hopefully to room air, but I think she is O2 dependent at this point. We will hold off on any significant sedative drugs and continue the Klonopin which seems to be working. Until the patient can transfer and transition to outpatient management, we will continue to monitor and treat as needed. #[id number] [facility]
[2019-12-24] MEDS: ALBUTEROL INHALER 64 PUFF/8GM INH PRN (04:16)
[2019-12-24] MEDS: PANTOPRAZOLE SODIUM TAB 40 MG PO SCH (06:01)
[2019-12-24] MEDS: METOPROLOL SUCCINATE XL 25 MG TAB PO SCH (08:05)
[2019-12-24] MEDS: ASPIRIN (ENTERIC COATED) 81 MG TAB PO SCH (08:05)
[2019-12-24] MEDS: amLODIPine BESYLATE 5 MG TAB PO SCH (08:05)
[2019-12-24] MEDS: guaiFENesin ER TAB 600 MG TAB PO SCH (08:05)
[2019-12-24] MEDS: CITALOPRAM HBR 20 MG TAB PO SCH (08:05)
[2019-12-24] MEDS: LISINOPRIL 5 MG TAB PO SCH (08:05)
[2019-12-24] MEDS: BIFIDOBACTERIUM INFANTIS 4 MG CAP PO SCH (08:05)
[2019-12-24] MEDS: SODIUM CHLORIDE 0.9% (FLUSH) 10 ML SYG IV SCH (08:10)
[2019-12-24] MEDS: DEXAMETHASONE INJ 10 MG/ML VIAL IV SCH (08:11)
[2019-12-24] MEDS: BRIMONIDINE OPHTH SCH (08:12)
[2019-12-24] MEDS: BRINZOLAMIDE OPHTH SCH (08:12)
[2019-12-24] MEDS: [UNRECOGNIZED DRUG - OTHER] OPHTH SCH (08:12)
[2019-12-24] MEDS: ALBUTEROL INHALER 64 PUFF/8GM INH SCH ×2 (08:40→18:30)
[2019-12-24] MEDS: BUDESONIDE/FORMOTEROL 160/4.5 60 PUFF/6 GM INH INH SCH (08:40)
[2019-12-24 09:21] VITALS: O2SAT 96
[2019-12-24 12:21] VITALS: BP 116/62; TEMP 98.2
--- NOTE | 2020-01-04 08:48 | DS ---
SUPERVISING PHYSICIAN: Mainor Amin M.D. ADMISSION DIAGNOSES: 1. COVID pneumonia. 2. Chronic obstructive pulmonary disease and asthma with exacerbation complicated by #1. 3. Congestive heart failure, unknown etiology. 4. Essential tremors. DISCHARGE DIAGNOSES: 1. COVID pneumonitis. 2. Chronic obstructive pulmonary disease and asthma exacerbation. 3. Congestive heart failure likely systolic/diastolic with some exacerbation with echocardiogram unavailable at time of discharge. 4. Essential tremors. 5. Disuse myopathy. REASON FOR HOSPITALIZATION: This is an 89 year-old female patient who has a history of congestive heart failure, chronic obstructive pulmonary disease and asthma that has been feeling poorly for the last 2 to 3 days. She progressively worsened to the point where she went to the Emergency Room in [place] due to her shortness of breath. She also had coughing and weakness. Initial oxygen saturations were in the low 70s. When they put oxygen on her it did come up to the mid 80s. She was given several breathing treatments and it then came up to the low 90s on 3 liters nasal cannula. Her other vital signs were basically within normal limits. BNP was only in the 50s and she does have a history of congestive heart failure, and then she tested positive for COVID-19. [facility] does not have the facilities for COVID patients so she was transferred here in stable condition. LABORATORY: Discharge white count 8,300, differential did show a left shift. Coagulation studies showed her D-dimer had normalized to 399. Chemistries showed normal electrolytes on discharge, creatinine at 1.32. Liver functions all was negative. Calcium within normal limits. Urinalysis showed a large amount of blood, leukoesterase small. Microscopic revealed 10 to 20 RBCs with 3 to 5 WBCs. No bacteria, no epithelials. MICROBIOLOGY: Final sputum culture just showed abundant yeast with normal guille. Urine culture showed no growth at 48 hours. RADIOLOGY: Chest x-ray on 12/23/19 per radiology interpretation was showing background pulmonary emphysematous changes with scattered peripheral reticular scarring/fibrosis with interval improvement of aeration of the lungs with near complete resolution of left basilar density/infiltrate. Please see that report for details. She also had a CT of the chest on admission which showed features consistent with Covid-19 pneumonia, although nonspecific and can occur with a variety of infections. Please see that report for details. HOSPITAL COURSE: Ms. Pacheco was admitted for treatment of Covid pneumonia. She was treated with Remdesivir, Rocephin, azithromycin, Decadron, breathing treatments with albuterol. She was also started on Lovenox. She showed good improvement and was clinically found to be stable enough to continue with outpatient management on date of discharge. PLAN: Ms. Pacheco was discharged and transferred to [facility] facility for continued treatment and rehabilitation efforts. She is to followup with Dr. Mohan on discharge. DISCHARGE MEDICATIONS: Home medications. She had completed respiratory treatment for Covid pneumonia. DISPOSITION: Transferred to [facility]. CONDITION ON DISCHARGE: Stable and improving. #[id number] [facility]
== END 2019-12-24 12:05 | DRG 177 ==
LOC: INFRM 15:51 → MS 15:52 → UNDOADMIN 15:54 → MS 15:54 → UNDOADMIN 12-20 16:46 → UNDODISIN 12-24 12:05
PROVIDERS: ADMIT Nurse Practitioner Acute Care; ATTEND Nurse Practitioner Family
PROC: XW033E5 Introduction of Remdesivir Anti-infective into Peripheral Vein, Percutaneous Approach, New Technology Group 5 (ICD-10-PCS; principal; 2019-12-14)
DX: U07.1 COVID-19 (principal); J12.89 Other viral pneumonia; J44.1 Chronic obstructive pulmonary disease with (acute) exacerbation; J44.0 Chronic obstructive pulmonary disease with (acute) lower respiratory infection; I50.43 Acute on chronic combined systolic (congestive) and diastolic (congestive) heart failure; G25.0 Essential tremor; G72.89 Other specified myopathies; Z79.51 Long term (current) use of inhaled steroids; Z79.82 Long term (current) use of aspirin; Z88.6 Allergy status to analgesic agent; Z79.899 Other long term (current) drug therapy; Z87.891 Personal history of nicotine dependence